=== PATIENT | male | born 1950 | race Caucasian/White ===

== ENCOUNTER 2018-04-09 15:05 | Outpatient (CLI) | payer OTHER ==
[2018-04-09 15:25] VITALS: BMI 33.8
== END 2018-04-09 15:12 | disposition short-term general hospital (02) ==
LOC: AMBL 15:05
PROVIDERS: ATTEND Emergency Medicine
DX: R42 Dizziness and giddiness (principal); R11.10 Vomiting, unspecified

== ENCOUNTER 2018-04-09 15:17 | Emergency (ER) ==
[2018-04-09 15:25] VITALS: TEMP 96.1; BMI 33.8
[2018-04-09 15:53] VITALS: BP 173/87
--- NOTE | 2018-04-09 15:53 | ED.PDOC ---
General ED Provider: Dr. JAMEY GARZA Chief Complaint: Nausea/Vomiting Stated Complaint: Dizziness, vertigo symptoms. Nausea and vomiting. Onset last night after standing up suddenly from his chair Time Seen by Physician: 15:40 Mode of Arrival: Ambulance Information Source: Patient Exam Limitations: No limitations Nursing and Triage Documentation Reviewed and Agree: Yes Does patient meet sepsis criteria?: No System Inflammatory Response Syndrome: Not Applicable Sepsis Protocol: For patient's 13 years and over: Temp is 96.8 and below OR 101 and greater Pulse >90 BPM Resp >20/minute Acutely Altered Mental Status Are patient's symptoms suggestive of a new infection, such as: -Pneumonia -Skin, Soft Tissue -Endocarditis -UTI -Bone, Joint Infection -Implantable Device -Acute Abdominal Infection -Wound Infection -Meningitis -Blood Stream Catheter Infection -Unknown Neurological Complaint Exam - Dizziness Complaint/Exam Last Known Well: 24 hr Onset: Sudden Symptoms Are: Still present Timing: Intermittent Episodes Lasting: Hours Initial Severity: Moderate Current Severity: Moderate Character: Reports: Head spinning, Room spinning, Lightheaded Aggravating: Reports: Position change Alleviating: Reports: Turning head Associated Signs and Symptoms: Reports: Nausea, Vomiting, Diaphoresis, Unsteady gait Cardiac Risk Factors: Reports: None CVA Risk Factors: Reports: None Related Surgical History: Reports: None JVD Present: No Carotid Bruit Present: No Nystagmus Present: No Gag Reflex Present: No Meningeal Signs Positive: No Focal Weakness: Present: None Focal Sensory Loss: Present: None [id number]: Normal Findings Differential Diagnoses: Dysrhythmia, Labyrinthitis, Meniere's, Metabolic abnormalities Review of Systems - Review Of Systems Constitutional: Reports: No symptoms Eyes: Reports: No symptoms Ears, Nose, Mouth, Throat: Reports: No symptoms Respiratory: Reports: Short of air Cardiac: Reports: No symptoms GI: Reports: No symptoms : Reports: No symptoms Musculoskeletal: Reports: No symptoms Skin: Reports: No symptoms Neurological: Reports: No symptoms Endocrine: Reports: No symptoms Hematologic/Lymphatic: Reports: No symptoms All Other Systems: Reviewed and Negative Past Medical History - Past Medical History Previously Healthy: Yes Endocrine: Reports: None, Dyslipidemia Cardiovascular: Reports: None, Hypertension Respiratory: Reports: None Hematological: Reports: None Gastrointestinal: Reports: None Genitourinary: Reports: None Neuro/Psych: Reports: None Musculoskeletal: Reports: None Cancer: Reports: None - Surgical History General Surgical History: Reports: None - Family History Family History: Reports: None - Social History Smoking Status: Former smoker Hx Substance Use: No Alcohol Screening: None - Immunizations Tetanus Shot up to Date: Yes Physical Exam - Physical Exam Appearance: Well-appearing, No pain distress, Well-nourished Ill-appearing: Mild Pain Distress: None Eyes: LM, EOMI, Conjunctiva clear ENT: Ears normal, Nose normal, Oropharynx normal Respiratory: Airway patent, Breath sounds clear, Breath sounds equal, Respirations nonlabored Cardiovascular: RRR, Pulses normal, No rub, No murmur GI/: Soft, Nontender, No masses, Bowel sounds normal, No Organomegaly Musculoskeletal: Normal strength, ROM intact, No edema, No calf tenderness Skin: Warm, Dry, Normal color Neurological: Sensation intact, Motor intact, Reflexes intact, Cranial nerves intact, Alert, Oriented Psychiatric: Affect appropriate, Mood appropriate Critical Care Note - Critical Care Note Total Time (mins): 60 Course - Course Hematology/Chemistry: 04/09/18 16:08 04/09/18 16:08 Orders, Labs, Meds: Lab Review 04/09/18 04/09/18 04/09/18 16:05 16:08 16:08 WBC 15.45 H RBC 5.14 Hgb 15.7 Hct 44.4 MCV 86.4 MCH 30.5 MCHC 35.4 RDW Coeff of Aureliano 12.9 Plt Count 218 Immature Gran % (Auto) 0.5 Neut % (Auto) 86.2 Lymph % (Auto) 9.7 L [place] % (Auto) 3.1 Eos % (Auto) 0.1 Baso % (Auto) 0.4 Immature Gran # (Auto) 0.1 Neut # (Auto) 13.3 H Lymph # (Auto) 1.5 [place] # (Auto) 0.5 Eos # (Auto) 0.0 Baso # (Auto) 0.1 Sodium 135.9 L Potassium 3.98 Chloride 100.4 Carbon Dioxide 26.9 Anion Gap 12.58 BUN 12.6 Creatinine 0.78 Estimated GFR (MDRD) 100.00 BUN/Creatinine Ratio 16.15 Glucose 165.2 H Calcium 9.09 Total Bilirubin 0.60 AST 26.1 ALT 28.9 Alkaline Phosphatase 77.7 Troponin I NT-Pro-B Natriuret Pep 25.500 Total Protein 7.20 Albumin 4.27 Globulin 2.93 Albumin/Globulin Ratio 1.45 Urine Color Urine Clarity Urine pH Ur Specific [place] Urine Protein Urine Glucose (UA) Urine Ketones Urine Blood Urine Nitrite Urine Bilirubin Urine Urobilinogen Ur Leukocyte Esterase Urine Microscopic RBC Urine Microscopic WBC Ur Squamous Epith Cells Urine Opiates Screen Ur Oxycodone Screen Urine Methadone Screen Ur Propoxyphene Screen Ur Barbiturates Screen U Tricyclic Antidepress Ur Phencyclidine Scrn Ur Amphetamine Screen U Methamphetamines Scrn U Benzodiazepines Scrn Urine Cocaine Screen U Cannabinoids Screen 04/09/18 04/09/18 04/09/18 16:08 16:58 16:58 WBC RBC Hgb Hct MCV MCH MCHC RDW Coeff of Aureliano Plt Count Immature Gran % (Auto) Neut % (Auto) Lymph % (Auto) [place] % (Auto) Eos % (Auto) Baso % (Auto) Immature Gran # (Auto) Neut # (Auto) Lymph # (Auto) [place] # (Auto) Eos # (Auto) Baso # (Auto) Sodium Potassium Chloride Carbon Dioxide Anion Gap BUN Creatinine Estimated GFR (MDRD) BUN/Creatinine Ratio Glucose Calcium Total Bilirubin AST ALT Alkaline Phosphatase Troponin I < 0.012 NT-Pro-B Natriuret Pep Total Protein Albumin Globulin Albumin/Globulin Ratio Urine Color Yellow Urine Clarity Clear Urine pH 5.5 Ur Specific [place] 1.020 Urine Protein 1+ Urine Glucose (UA) Negative Urine Ketones 1+ Urine Blood Trace-lysed Urine Nitrite Negative Urine Bilirubin Negative Urine Urobilinogen 0.2 Ur Leukocyte Esterase Negative Urine Microscopic RBC 0-2 Urine Microscopic WBC 0-2 Ur Squamous Epith Cells Not present Urine Opiates Screen Negative Ur Oxycodone Screen Negative Urine Methadone Screen Negative Ur Propoxyphene Screen Negative Ur Barbiturates Screen Negative U Tricyclic Antidepress Negative Ur Phencyclidine Scrn Negative Ur Amphetamine Screen Negative U Methamphetamines Scrn Negative U Benzodiazepines Scrn Negative Urine Cocaine Screen Negative U Cannabinoids Screen Negative Orders Category Date Time Status EKG-(ED ONLY) Stat CARDIO 04/09/18 15:58 Completed VITAL SIGNS Q30MIN CARE 04/09/18 15:54 Active CBC W/ AUTO DIFF Stat LAB 04/09/18 16:08 Completed CMP [COMPREHENSIVE METABOLIC PANEL] Stat LAB 04/09/18 16:08 Completed PRO-BNP [NT-PROBNP] Stat LAB 04/09/18 16:05 Completed TROPONIN I Stat LAB 04/09/18 16:08 Completed UA [URINALYSIS C & S IF INDICATED] Stat LAB 04/09/18 16:58 Completed URINE DRUG SCREEN (RAPID FOR ED) [DRUG SCREEN, URINE, LAB 04/09/18 16:58 Completed RAPID] Stat Meclizine HCl [Antivert] MEDS 04/09/18 15:58 Discontinued 25 mg PO ONCE STA Ondansetron [Zofran Odt] MEDS 04/09/18 15:56 Discontinued 4 mg PO ONCE STA CHEST, 1V AP ONLY Stat RADS 04/09/18 15:[address] HEAD W/O CONTRAST Stat RADS 04/09/18 15:54 Completed Medications Discontinued Medications Generic Name Dose Route Start Last Admin Trade Name Neptaliq PRN Reason Stop Dose Admin Meclizine HCl 25 mg 04/09/18 15:58 04/09/18 16:40 Antivert PO 04/09/18 15:59 25 mg ONCE STA Administration Ondansetron HCl 4 mg 04/09/18 15:56 04/09/18 16:08 Zofran Odt PO 04/09/18 15:57 4 mg ONCE STA Administration Vital Signs: Temp Pulse Resp BP Pulse Ox 04/09/18 15:54 76 173/87 H 04/09/18 15:53 73 158/92 H 04/09/18 15:51 76 20 173/87 H 94 L 04/09/18 15:50 77 18 157/77 H 96 04/09/18 15:18 96.1 F L 80 16 157/77 H 95 Departure - Departure Time of Disposition: 17:30 Disposition: HOME SELF-CARE Discharge Problem: Vertigo, Acute labyrinthitis, Dyspnea on exertion Instructions: Labyrinthitis (ED), Vertigo (ED) Condition: Good Pt referred to PMD for follow-up: Yes (See PCP in next week) IPMP verified?: No Additional Instructions: Call and make follow up apt with physician at [facility] tomorrow If develops other problems return to ER Prescriptions: Meclizine HCl 25 mg PO TID #10 tablet Allergies/Adverse Reactions: Allergies No Known Allergies Allergy (Unverified 04/09/18 15:55) Home Medications: Ambulatory Orders Lisinopril 20 mg PO DAILY 04/09/18 Meclizine HCl 25 mg PO TID #10 tablet 04/09/18 Meloxicam 15 mg PO DAILY 04/09/18 Tramadol HCl 50 mg PO DAILY PRN 04/09/18 Disposition Discussed With: Patient, Family
[2018-04-09] MEDS ORDERED: ZOFRAN ODT PO STA (15:56)
[2018-04-09] MEDS ORDERED: BENADRYL IM STA (15:56)
[2018-04-09] MEDS ORDERED: ANTIVERT PO STA (15:58)
--- NOTE | 2018-04-09 16:47 | CT ---
Exam: CT of the brain without intravenous contrast. Comparison: None available. Reason for exam: Vertigo. FINDINGS: No acute intracranial hemorrhage, mass effect, ventricular dilatation, or territorial infa rction. The quadrigeminal and ambient cisterns are patent. There is no extraaxial fluid collection. The calvarium appears intact without depressed skull fracture. Mucosal thickening is seen in the e thmoid sinuses. There are small mastoid air cell effusions. Parenchymal changes are seen consistent with chronic microvascular disease. Incidental note of a pos terior fossa cyst versus sukhwinder cisterna magna. Impression: 1. No acute intracranial findings. 2. Small mastoid air cell effusions. 3. Mucosal thickening in the ethmoid sinuses. 4. Parenchymal changes consistent with chronic microvascular disease
--- NOTE | 2018-04-09 16:52 | DI ---
Exam: Single view of the chest. Comparison: None available. Reason for exam: Vertigo. FINDINGS: No pneumothorax, pleural effusion, or focal consolidation. The cardiac silhouette appears prominent in size. The imaged osseous structures appear grossly unremarkable. Mild pulmonary vascular congest ion. Impression: Prominent appearing cardiac silhouette with pulmonary vascular congestion. No focal airspace consoli dation is seen.
== END 2018-04-09 17:51 | disposition home or self-care (01) ==
LOC: ED 15:17
DX: R42 Dizziness and giddiness (principal); H83.09 Labyrinthitis, unspecified ear; R06.02 Shortness of breath; R11.2 Nausea with vomiting, unspecified; E78.5 Hyperlipidemia, unspecified; I10 Essential (primary) hypertension
CPT/HCPCS: 36415; 80053; 80306; 81001; 83880; 84484; 85025; 93005; 93010; 99283